=== PATIENT | male | born 1985 | race Caucasian/White ===

== ENCOUNTER 2019-10-02 04:36 | Emergency (ER) | payer MEDICAID, OTHER, SELFPAY ==
[2019-10-02] MEDS ORDERED: ISOVUE-370 76% 100ML VIAL As Ordered ONE (05:01)
[2019-10-02 05:04] LABS: BASO % 0.6 % (0.0-1.0); EOS # 0.2 10^3/uL (0.0-0.5); EOS % 3.6 % (0.0-3.0); HEMATOCRIT 45.5 % (42.0-52.0); HEMOGLOBIN 15.2 g/dl (13.5-17.5); LYMPH # 1.7 10^3/uL (1.5-5.0); LYMPH % 27.1 % (24.0-44.0); MEAN CORPUSCULAR HEMOGLOBIN 31.4 pg (27.0-33.0); MEAN CORPUSCULAR HGB CONC 33.4 g/dl (32.0-36.5); MONO # 0.6 10^3/uL (0.0-0.8); MONO % 10.1 % (0.0-5.0); NEUTROPHILS # 3.7 10^3/uL (1.5-8.5); NEUTROPHILS % 58.3 % (36.0-66.0); PLATELET COUNT, AUTOMATED 248 10^3/uL (150-450); RED BLOOD COUNT 4.84 10^6/uL (4.30-6.10); WHITE BLOOD COUNT 6.4 10^3/uL (4.0-10.0)
[2019-10-02 05:31] LABS: BILIRUBIN,DIRECT 0.1 MG/DL (0.0-0.2); BILIRUBIN,TOTAL 0.3 MG/DL (0.2-1.0); TOTAL PROTEIN 7.2 GM/DL (6.4-8.2)
--- NOTE | 2019-10-02 06:00 | REPVR ---
PROCEDURE INFORMATION: Exam: CT Abdomen And Pelvis With Contrast Exam date and time: 10/02/2019 4:46 AM Age: 34 years old Clinical indication: Abdominal pain; Localized; Right; Additional info: Right sided abdominal pain, hematochezia TECHNIQUE: Imaging protocol: Computed tomography of the abdomen and pelvis with intravenous contrast. Radiation optimization: All CT scans at this facility use at least one of these dose optimization techniques: automated exposure control; mA and/or kV adjustment per patient size (includes targeted exams where dose is matched to clinical indication); or iterative reconstruction. Contrast material: ISO; Contrast volume: 100 ml; Contrast route: AC; COMPARISON: No relevant prior studies available. FINDINGS: Lungs: There are two 2-3 mm left lower lobe lung nodules on axial image 1. Liver: Normal. No mass. Gallbladder and bile ducts: Normal. No calcified stones. No ductal dilation. Pancreas: Normal. No ductal dilation. Spleen: Normal. No splenomegaly. Adrenals: Normal. No mass. Kidneys and ureters: Normal. No hydronephrosis. Stomach and bowel: There is moderate colonic stool burden. The rectosigmoid colon is under distended limiting its evaluation however there is wall edema despite under distension There is increased vascularity with multiple shotty lymph nodes in the pelvis around the anorectum. Appendix: No evidence of appendicitis. Intraperitoneal space: Unremarkable. No free air. No significant fluid collection. Vasculature: Unremarkable. No abdominal aortic aneurysm. Lymph nodes: There is suggestion of some thickened small bowel loops with shotty mesenteric lymph nodes. Bladder: Unremarkable as visualized. Reproductive: Unremarkable as visualized. Bones/joints: Unremarkable. No acute fracture. Soft tissues: Unremarkable. IMPRESSION: 1. CT findings suggestive of rectosigmoiditis with pelvic/iliac chain shotty adenopathy possibly reactive. 2. An element of enteritis cannot be excluded as suggested by questionable thickening of the small bowel loops with shotty mesenteric lymph nodes. 3. Moderate colonic stool burden. 4. Two 2-3 mm left lower lobe lung nodules. If patient does not have known cancer, follow up should be based on clinical information because of the low risk of cancer in this age group. (flako Curran al., Fleischner Society, 2017) Electronically signed by: Wilebrt Razo On 10/02/2019 05:59:49 AM
[2019-10-02] MEDS ORDERED: FLAG500T PO (06:10)
[2019-10-02] MEDS ORDERED: CIPR-249 PO (06:10)
[2019-10-02] MEDS ORDERED: metroNIDAZOLE (FLAGYL) 500 MG TAB PO ONE (06:15)
[2019-10-02] MEDS ORDERED: CIPROFLOXACIN 500MG TABLET PO ONE (06:15)
[2019-10-02 06:36] VITALS: BP 107/65
--- NOTE | 2019-10-02 13:51 | ED PDOC ---
Post-Departure Follow-Up certified letter sent to pt. obtain pcp name and fax report of ct abd/p for fu. if no pcp refer to [facility] and fax there. Arlene Rodriguez MD Oct 02, 2019 13:51
== END 2019-10-02 06:52 | disposition home or self-care (01) ==
LOC: M ED 04:36
DX: K52.9 Noninfective gastroenteritis and colitis, unspecified (principal); R91.8 Other nonspecific abnormal finding of lung field; F17.200 Nicotine dependence, unspecified, uncomplicated; Z80.1 Family history of malignant neoplasm of trachea, bronchus and lung
CPT/HCPCS: 36415; 74177; 80047; 80076; 83690; 85025; 86850; 86900; 86901; 93041; 99284; Q9967

== ENCOUNTER → 2019-10-29 | Outpatient (REF) | payer OTHER, MEDICAID ==
[~2019-10-29] MED LIST: CIPR-249 PO; FLAG500T PO
[2019-10-29 12:36] LABS: BASO # 0.1 10^3/uL (0.0-0.2); BASO % 0.9 % (0.0-1.0); EOS # 0.3 10^3/uL (0.0-0.5); EOS % 3.9 % (0.0-3.0); HEMATOCRIT 42.2 % (42.0-52.0); HEMOGLOBIN 14.1 g/dl (13.5-17.5); LYMPH # 2.4 10^3/uL (1.5-5.0); LYMPH % 34.1 % (24.0-44.0); MEAN CORPUSCULAR HEMOGLOBIN 32.2 pg (27.0-33.0); MEAN CORPUSCULAR HGB CONC 33.4 g/dl (32.0-36.5); MEAN CORPUSCULAR VOLUME 96.3 fl (80.0-96.0); MONO # 0.5 10^3/uL (0.0-0.8); MONO % 7.4 % (0.0-5.0); NEUTROPHILS # 3.8 10^3/uL (1.5-8.5); NEUTROPHILS % 53.4 % (36.0-66.0); PLATELET COUNT, AUTOMATED 256 10^3/uL (150-450); RED BLOOD COUNT 4.38 10^6/uL (4.30-6.10)
[2019-10-29 12:52] LABS: TOTAL 25(OH) VITAMIN D 39.3 NG/ML (30.0-100.0)
[2019-10-29 12:57] LABS: ALBUMIN 3.8 GM/DL (3.2-5.2); ALT/SGPT 22 U/L (12-78); BILIRUBIN,TOTAL 0.4 MG/DL (0.2-1.0); BLOOD UREA NITROGEN 13 MG/DL (7-18); CALCIUM LEVEL 9.7 MG/DL (8.5-10.1); CARBON DIOXIDE LEVEL 31 MEQ/L (21-32); CHLORIDE LEVEL 107 MEQ/L (98-107); CHOLESTEROL LEVEL 180 MG/DL (<200); CHOLESTEROL RISK RATIO 2.608 (<5); CREATININE FOR GFR 0.85 MG/DL (0.70-1.30); FREE T4 0.94 NG/DL (0.76-1.46); GLOMERULAR FILTRATION RATE > 60.0 (>60); GLUCOSE, FASTING 92 MG/DL (70-100); HDL CHOLESTEROL 69 MG/DL (>40); LDL CHOLESTEROL 84 MG/DL (<100); NON-HDL-C 111 MG/DL; POTASSIUM SERUM 4.3 MEQ/L (3.5-5.1); SODIUM LEVEL 140 MEQ/L (136-145); TRIGLYCERIDES LEVEL 137 MG/DL (<150)
== END ==
LOC: M LAB REF 11:50
PROVIDERS: ATTEND Physician Assistant
DX: Z13.9 Encounter for screening, unspecified (principal); R91.8 Other nonspecific abnormal finding of lung field; A09 Infectious gastroenteritis and colitis, unspecified; Z68.21 Body mass index [BMI] 21.0-21.9, adult

== ENCOUNTER → 2019-12-23 | Outpatient (CLI) | payer OTHER, MEDICAID ==
[~2019-12-23] MED LIST changes: +MULTCAP PO
== END ==
LOC: M LABSMTC 12:31
PROVIDERS: ATTEND Anesthesiology
DX: Z01.812 Encounter for preprocedural laboratory examination (principal); Z20.828 Contact with and (suspected) exposure to other viral communicable diseases
CPT/HCPCS: C9803; U0003

== ENCOUNTER 2019-12-28 09:29 | Day surgery (SDC) | payer OTHER ==
[~2019-12-28] VITALS: Ht 180.3 cm; Wt 65.8 kg
[~2019-12-28 09:29] MED LIST changes: +LIDOCAINE 2% 100MG/5ML SDV (FOR ANES.) As Ordered ONE; +propofoL 200 MG/20 ML VIAL As Ordered ONE
[2019-12-28] MEDS ORDERED: NS 1,000 ML IV ONE (10:15)
[2019-12-28 11:45] VITALS: BP 129/85
--- NOTE | 2020-01-06 11:31 | ROOR ---
Patient Name: Fernando Martínez Procedure Date: 12/28/2019 8:55 AM Date of : 1985 Age: 34 Room: [facility] Gender: Male Note Status: Finalized Procedure: Colonoscopy Indications: Hematochezia, Weight loss Providers: Jose Macdonald MD Referring MD: Magdiel Godinez Requesting Provider: Medicines: Monitored Anesthesia Care Complications: No immediate complications. Procedure: Pre-Anesthesia Assessment: - Prior to the procedure, a History and Physical was performed, and patient medications and allergies were reviewed. The patient is competent. The risks and benefits of the procedure and the sedation options and risks were discussed with the patient. All questions were answered and informed consent was obtained. Patient identification and proposed procedure were verified by the physician, the nurse and the anesthesiologist in the procedure room. Mental Status Examination: alert and oriented. Airway Examination: normal oropharyngeal airway and neck mobility. Respiratory Examination: clear to auscultation. CV Examination: normal. Prophylactic Antibiotics: The patient does not require prophylactic antibiotics. Prior Anticoagulants: The patient has taken no previous anticoagulant or antiplatelet agents. ASA Grade Assessment: II - A patient with mild systemic disease. After reviewing the risks and benefits, the patient was deemed in satisfactory condition to undergo the procedure. The anesthesia plan was to use monitored anesthesia care (MAC). Immediately prior to administration of medications, the patient was re-assessed for adequacy to receive sedatives. The heart rate, respiratory rate, oxygen saturations, blood pressure, adequacy of pulmonary ventilation, and response to care were monitored throughout the procedure. The physical status of the patient was re-assessed after the procedure. The Colonoscope was introduced through the anus with the intention of advancing to the cecum. The scope was advanced to the transverse colon before the procedure was aborted. Medications were given. The colonoscopy was performed without difficulty. The patient tolerated the procedure well. The quality of the bowel preparation was unsatisfactory. The rectum was photographed. Scope insertion time was 2 minutes. Scope withdrawal time was 6 minutes. The total duration of the procedure was 8 minutes. Findings: The perianal and digital rectal examinations were normal. A large amount of stool was found in the rectum and from descending colon to transverse colon, making visualization difficult. Lavage of the area was performed using a large amount of sterile water, resulting in incomplete clearance with continued poor visualization. Normal mucosa was found from rectum to transverse colon. Biopsies for histology were taken with a cold forceps from the left colon for evaluation of microscopic colitis. Verification of patient identification for the specimen was done by the physician and nurse using the patient's name, date and medical record number. Estimated blood loss was minimal. Non-bleeding external and internal hemorrhoids were found during retroflexion. The hemorrhoids were medium-sized. Impression: - Preparation of the colon was unsatisfactory. - Stool in the rectum and from descending to transverse colon. - Normal mucosa from rectum to transverse colon. Biopsied. - Non-bleeding external and internal hemorrhoids. Recommendation: - Patient has a contact number available for emergencies. The signs and symptoms of potential delayed complications were discussed with the patient. Return to normal activities tomorrow. Written discharge instructions were provided to the patient. - Resume previous diet. - Use fiber, for example Citrucel, Fibercon, Konsyl or Metamucil. - Await pathology results. - Repeat colonoscopy in 3 months because the bowel preparation was poor, for surveillance based on pathology results and for surveillance based on clinical status at that time. - Return to GI clinic in [facility] (address [address], [address], [place], [facility]) in 4 -- 6 weeks. Please call GI clinic @ [phone] for apppointment date and time. - Return to primary care physician. Jose Macdonald MD Jose Macdonald MD 12/28/2019 11:33:44 AM Number of Addenda: 0 Note Initiated On: 12/28/2019 8:55 AM Estimated Blood Loss: Estimated blood loss was minimal.
== END 2019-12-28 16:07 | disposition home or self-care (01) ==
LOC: M OPP 09:29
PROVIDERS: ATTEND Internal Medicine Gastroenterology
DX: K64.8 Other hemorrhoids (principal); R63.4 Abnormal weight loss; K92.1 Melena; Z88.5 Allergy status to narcotic agent

== ENCOUNTER 2022-01-19 00:54 | Emergency (ER) | payer OTHER ==
[~2022-01-19] VITALS: Ht 175.3 cm; Wt 59.0 kg
[~2022-01-19 00:54] MED LIST changes: -LIDOCAINE 2% 100MG/5ML SDV (FOR ANES.) As Ordered ONE; -propofoL 200 MG/20 ML VIAL As Ordered ONE
[2022-01-19 01:40] LABS: HEMATOCRIT 41.6 % (42.0-52.0); HEMOGLOBIN 14.5 g/dl (13.5-17.5); MEAN CORPUSCULAR HEMOGLOBIN 31.8 pg (27.0-33.0); MEAN CORPUSCULAR HGB CONC 34.9 g/dl (32.0-36.5); MEAN CORPUSCULAR VOLUME 91.2 fl (80.0-96.0); PLATELET COUNT, AUTOMATED 338 10^3/uL (150-450); RED BLOOD COUNT 4.56 10^6/uL (4.30-6.10); WHITE BLOOD COUNT 7.5 10^3/uL (4.0-10.0)
[2022-01-19] MEDS ORDERED: ALEV220T22 PO (02:06)
[2022-01-19] MEDS ORDERED: HOME MED LIST COMPLETE! XX SCH (02:10)
[2022-01-19 02:11] LABS: RSV AMPLIFICATION NEGATIVE (NEGATIVE)
[2022-01-19 02:43] LABS: ACETAMINOPHEN LEVEL < 2.0 UG/ML (10.0-30.0); ALBUMIN 4.1 GM/DL (3.2-5.2); ALT/SGPT 18 U/L (12-78); AMPHETAMINES LEVEL URINE NEGATIVE (NEGATIVE); BARBITURATES URINE NEGATIVE (NEGATIVE); BENZODIAZEPINES URINE NEGATIVE (NEGATIVE); BILIRUBIN,DIRECT 0.2 MG/DL (0.0-0.2); BILIRUBIN,TOTAL 0.8 MG/DL (0.2-1.0); BLOOD UREA NITROGEN 7 MG/DL (7-18); CALCIUM LEVEL 9.3 MG/DL (8.5-10.1); CANNABINOIDS URINE POSITIVE (NEGATIVE); CARBON DIOXIDE LEVEL 26 MEQ/L (21-32); CHLORIDE LEVEL 111 MEQ/L (98-107); COCAINE METABOLITE URINE NEGATIVE (NEGATIVE); CREATININE FOR GFR 0.77 MG/DL (0.70-1.30); ETHYL ALCOHOL (ETHANOL) 0.004 % (0.000-0.010); GLOMERULAR FILTRATION RATE > 60.0 (>60); GLUCOSE, FASTING 95 MG/DL (70-100); METHADONE URINE NEGATIVE (NEGATIVE); OPIATES URINE NEGATIVE (NEGATIVE); PHENCYCLIDINE URINE NEGATIVE (NEGATIVE); POTASSIUM SERUM 3.6 MEQ/L (3.5-5.1); SALICYLATE LEVEL < 1.7 MG/DL (5.0-30.0); SODIUM LEVEL 141 MEQ/L (136-145); THYROID STIMULATING HORMONE 0.232 uIU/ML (0.358-3.740); TOTAL PROTEIN 7.1 GM/DL (6.4-8.2)
[2022-01-19] MEDS ORDERED: VENTAER INH (19:56)
[2022-01-20] MEDS ORDERED: ALBUTEROL 90 MCG/ACT 8GM HFA INHALER INH PRN (11:40)
[2022-01-20] MEDS ORDERED: ACETAMINOPHEN TAB 650MG DOSE (2X325MG) PO ONE (15:05)
[2022-01-20 18:55] VITALS: BP 140/74
== END 2022-01-20 19:29 | disposition home or self-care (01) ==
LOC: M ED 00:54
DX: F43.21 Adjustment disorder with depressed mood (principal); F32.A Depression, unspecified; Z91.51 Personal history of suicidal behavior; Z88.5 Allergy status to narcotic agent

== ENCOUNTER 2023-08-29 04:50 | Inpatient (IN) | payer MEDICAID, OTHER ==
[~2023-08-29] VITALS: Ht 180.3 cm; Wt 56.1 kg
[~2023-08-29 04:50] MED LIST changes: +ALEV220T22 PO; +VENTAER INH
[2023-08-29 05:42] LABS: HEMATOCRIT 42.9 % (42.0-52.0); HEMOGLOBIN 15.1 g/dl (13.5-17.5); MEAN CORPUSCULAR HEMOGLOBIN 32.2 pg (27.0-33.0); MEAN CORPUSCULAR HGB CONC 35.2 g/dl (32.0-36.5); MEAN CORPUSCULAR VOLUME 91.5 fl (80.0-96.0); PLATELET COUNT, AUTOMATED 288 10^3/uL (150-450); RED BLOOD COUNT 4.69 10^6/uL (4.30-6.10); WHITE BLOOD COUNT 10.5 10^3/uL (4.0-10.0)
[2023-08-29 06:08] LABS: BARBITURATES URINE NEGATIVE (NEGATIVE); COCAINE METABOLITE URINE NEGATIVE (NEGATIVE); METHADONE URINE NEGATIVE (NEGATIVE)
[2023-08-29 06:09] LABS: AMPHETAMINES LEVEL URINE NEGATIVE (NEGATIVE); BENZODIAZEPINES URINE NEGATIVE (NEGATIVE); OPIATES URINE NEGATIVE (NEGATIVE); PHENCYCLIDINE URINE NEGATIVE (NEGATIVE)
[2023-08-29 06:10] LABS: CANNABINOIDS URINE POSITIVE (NEGATIVE)
[2023-08-29 06:11] LABS: ETHYL ALCOHOL (ETHANOL) 0.004 % (0.000-0.010)
[2023-08-29 06:13] LABS: ALBUMIN 4.3 G/DL (3.2-5.2); ALKALINE PHOSPHATASE 112 U/L (46-116); ALT/SGPT 16 U/L (7.0-40); AST/SGOT 9 U/L (<34); BILIRUBIN,DIRECT 0.3 MG/DL (<0.4); BILIRUBIN,TOTAL 0.6 MG/DL (0.3-1.2); BLOOD UREA NITROGEN 9 MG/DL (9-23); CALCIUM LEVEL 9.9 MG/DL (8.5-10.1); CARBON DIOXIDE LEVEL 23 MMOL/L (20-31); CHLORIDE LEVEL 105 MMOL/L (98-107); CREATININE FOR GFR 0.82 MG/DL (0.70-1.30); GLOMERULAR FILTRATION RATE > 60.0 (>60); GLUCOSE, FASTING 92 MG/DL (60-100); POTASSIUM SERUM 3.8 MMOL/L (3.5-5.1); SALICYLATE LEVEL < 3.0 MG/DL (<30); SODIUM LEVEL 138 MMOL/L (136-145); TOTAL PROTEIN 7.1 G/DL (5.7-8.2)
[2023-08-29 06:15] LABS: THYROID STIMULATING HORMONE 0.852 uIU/ML (0.55-4.78)
[2023-08-29] MEDS ORDERED: THERTAB52 PO (09:38)
[2023-08-29] MEDS ORDERED: HOME MED LIST COMPLETE! XX SCH (09:40)
[2023-08-29] MEDS ORDERED: diphenhydrAMINE 25MG CAP PO PRN (12:15)
[2023-08-29] MEDS ORDERED: traZODone 50 MG TAB PO PRN (12:15)
[2023-08-29] MEDS ORDERED: MAALOX 30 ML SUSP *UDC PO PRN (12:15)
[2023-08-29] MEDS ORDERED: MOM 30ML SUSPENSION UDC PO PRN (12:15)
[2023-08-29] MEDS: IBUPROFEN 400MG TAB PO PRN (21:09)
[2023-08-30 06:22] VITALS: BP 117/67; TEMP 98.1; O2SAT 96
[2023-08-30] MEDS ORDERED: ALBUTEROL 90 MCG/ACT 8GM HFA INHALER INH PRN (09:35)
[2023-08-30] MEDS ORDERED: OLANZapine ORAL DISINTEGRATING TAB 5MG PO PRN (09:35)
[2023-08-30] MEDS: NICOTINE 14 MG/24 HR TRANSDERMAL TD SCH (13:06)
[2023-08-30] MEDS: ACETAMINOPHEN TAB 650MG DOSE (2X325MG) PO PRN (13:07)
[2023-08-30 16:03] VITALS: BP 120/71; TEMP 98.5; O2SAT 100
[2023-08-31 06:22] VITALS: BP 125/77; TEMP 98.1; O2SAT 99
[2023-08-31 15:33] VITALS: BP 118/71; TEMP 98.2; O2SAT 98
[2023-09-01 06:26] VITALS: BP 115/61; TEMP 98.2; O2SAT 99
[2023-09-01 15:31] VITALS: BP 135/66; TEMP 98.1; O2SAT 98
[2023-09-02 06:46] VITALS: BP 98/56; TEMP 97.8; O2SAT 98
== END 2023-09-02 12:33 | disposition home or self-care (01) | DRG 753 ==
LOC: M ED 04:50 → M ED INP 12:13 → M PSY 15:12
PROVIDERS: ADMIT Student in an Organized Health Care Education/Training Program; ATTEND Student in an Organized Health Care Education/Training Program
DX: F31.9 Bipolar disorder, unspecified (principal); R45.851 Suicidal ideations; F17.290 Nicotine dependence, other tobacco product, uncomplicated; Z56.0 Unemployment, unspecified; Z62.810 Personal history of physical and sexual abuse in childhood; Z88.5 Allergy status to narcotic agent; Z11.52 Encounter for screening for COVID-19

== ENCOUNTER → 2023-09-09 | Outpatient (REF) | payer MEDICAID ==
[~2023-09-09] MED LIST changes: +THERTAB52 PO
[2023-09-09 16:56] LABS: ALBUMIN 4.2 G/DL (3.2-5.2); ALKALINE PHOSPHATASE 116 U/L (46-116); ALT/SGPT 17 U/L (7.0-40); AST/SGOT 15 U/L (<34); BILIRUBIN,TOTAL 0.9 MG/DL (0.3-1.2); BLOOD UREA NITROGEN 13 MG/DL (9-23); CALCIUM LEVEL 9.8 MG/DL (8.5-10.1); CARBON DIOXIDE LEVEL 28 MMOL/L (20-31); CHLORIDE LEVEL 107 MMOL/L (98-107); CHOLESTEROL LEVEL 144 MG/DL (<200); CHOLESTEROL RISK RATIO 2.29 (<5); CREATININE FOR GFR 0.85 MG/DL (0.70-1.30); GLOMERULAR FILTRATION RATE > 60.0 (>60); GLUCOSE, FASTING 78 MG/DL (60-100); HDL CHOLESTEROL 62.8 MG/DL (>40); NON-HDL-C 81.2 MG/DL; POTASSIUM SERUM 4.6 MMOL/L (3.5-5.1); SODIUM LEVEL 141 MMOL/L (136-145); TRIGLYCERIDES LEVEL 61 MG/DL (<150)
[2023-09-09 16:57] LABS: THYROID STIMULATING HORMONE 0.566 uIU/ML (0.55-4.78); TOTAL 25(OH) VITAMIN D 8.2 NG/ML (20.0-100.0)
[2023-09-09 17:02] LABS: HEMOGLOBIN A1c 4.6 % (4.0-6.0)
[2023-09-09 17:04] LABS: BASO % 0.4 % (0.0-1.0); EOS # 0.2 10^3/uL (0.0-0.5); EOS % 2.1 % (0.0-3.0); HEMATOCRIT 46.2 % (42.0-52.0); HEMOGLOBIN 15.5 g/dl (13.5-17.5); LYMPH # 1.5 10^3/uL (1.5-5.0); LYMPH % 20.4 % (24.0-44.0); MEAN CORPUSCULAR HGB CONC 33.5 g/dl (32.0-36.5); MEAN CORPUSCULAR VOLUME 95.3 fl (80.0-96.0); MONO # 0.6 10^3/uL (0.0-0.8); MONO % 7.9 % (2.0-8.0); NEUTROPHILS % 68.9 % (36.0-66.0); PLATELET COUNT, AUTOMATED 317 10^3/uL (150-450); RED BLOOD COUNT 4.85 10^6/uL (4.30-6.10); WHITE BLOOD COUNT 7.2 10^3/uL (4.0-10.0)
== END ==
LOC: M LAB REF 16:29
PROVIDERS: ATTEND Nurse Practitioner Family
DX: R63.4 Abnormal weight loss (principal); E55.9 Vitamin D deficiency, unspecified; R53.83 Other fatigue; Z11.9 Encounter for screening for infectious and parasitic diseases, unspecified

== ENCOUNTER 2023-10-20 02:14 | Emergency (ER) | payer OTHER ==
[~2023-10-20] VITALS: Ht 180.3 cm; Wt 57.3 kg
[2023-10-20 02:41] LABS: BASO # 0.1 10^3/uL (0.0-0.2); BASO % 0.6 % (0.0-1.0); EOS # 0.2 10^3/uL (0.0-0.5); EOS % 1.9 % (0.0-3.0); HEMATOCRIT 42.3 % (42.0-52.0); HEMOGLOBIN 15.2 g/dl (13.5-17.5); LYMPH # 2.2 10^3/uL (1.5-5.0); LYMPH % 18.5 % (24.0-44.0); MEAN CORPUSCULAR HEMOGLOBIN 32.2 pg (27.0-33.0); MEAN CORPUSCULAR HGB CONC 35.9 g/dl (32.0-36.5); MEAN CORPUSCULAR VOLUME 89.6 fl (80.0-96.0); MONO # 0.8 10^3/uL (0.0-0.8); MONO % 6.6 % (2.0-8.0); NEUTROPHILS # 8.5 10^3/uL (1.5-8.5); NEUTROPHILS % 72.1 % (36.0-66.0); PLATELET COUNT, AUTOMATED 327 10^3/uL (150-450); RED BLOOD COUNT 4.72 10^6/uL (4.30-6.10); WHITE BLOOD COUNT 11.8 10^3/uL (4.0-10.0)
[2023-10-20 03:06] LABS: LIPASE 32 U/L (12-53)
[2023-10-20 03:09] LABS: ALBUMIN 4.1 G/DL (3.2-5.2); ALKALINE PHOSPHATASE 121 U/L (46-116); ALT/SGPT 13 U/L (7.0-40); AST/SGOT < 8 U/L (<34); BILIRUBIN,DIRECT 0.4 MG/DL (<0.4); BILIRUBIN,TOTAL 1.3 MG/DL (0.3-1.2); BLOOD UREA NITROGEN 11 MG/DL (9-23); CALCIUM LEVEL 9.7 MG/DL (8.5-10.1); CARBON DIOXIDE LEVEL 27 MMOL/L (20-31); CHLORIDE LEVEL 102 MMOL/L (98-107); CREATININE FOR GFR 0.87 MG/DL (0.70-1.30); GLOMERULAR FILTRATION RATE > 60.0 (>60); GLUCOSE, FASTING 88 MG/DL (60-100); POTASSIUM SERUM 3.7 MMOL/L (3.5-5.1); SODIUM LEVEL 135 MMOL/L (136-145); TOTAL PROTEIN 6.9 G/DL (5.7-8.2)
[2023-10-20] MEDS: PANTOPRAZOLE 40MG VIAL IV ONE (05:54)
[2023-10-20] MEDS: GASTROGRAFIN SOLUTION 30ML PO SCH (06:12)
[2023-10-20] MEDS ORDERED: ISOVUE-370 76% 100ML VIAL As Ordered ONE (07:03)
[2023-10-20 12:15] VITALS: BP 116/83; TEMP 98; O2SAT 98
[2023-10-20] MEDS ORDERED: PANT20TA6 PO (12:16)
[2023-10-20] MEDS ORDERED: CARA1TAB6 PO (12:16)
== END 2023-10-20 12:35 | disposition home or self-care (01) ==
LOC: EDBD 02:14 → M ED 02:14
DX: K21.9 Gastro-esophageal reflux disease without esophagitis (principal); K56.1 Intussusception; F17.290 Nicotine dependence, other tobacco product, uncomplicated; Z79.899 Other long term (current) drug therapy; Z88.5 Allergy status to narcotic agent
CPT/HCPCS: 74177; 80048; 80076; 83605; 83690; 85025; 86850; 86900; 86901; 96374; 99284; C9113; Q9963; Q9967

== ENCOUNTER → 2023-10-22 | Outpatient (REF) | payer OTHER ==
[~2023-10-22] MED LIST changes: +CARA1TAB6 PO; +PANT20TA6 PO
[2023-10-22 17:55] LABS: PERCENT SATURATION 44.5 % (19.7-50.0)
[2023-10-22 17:57] LABS: FREE T4 1.41 NG/DL (0.89-1.76)
[2023-10-22 20:07] LABS: IMMUNOGLOBULIN A 268.9 MG/DL (40-350)
== END ==
LOC: M LAB REF 16:39
PROVIDERS: ATTEND Nurse Practitioner Family
DX: R63.6 Underweight (principal); R14.0 Abdominal distension (gaseous)

== ENCOUNTER 2024-02-14 08:31 | Emergency (ER) | payer OTHER ==
[~2024-02-14] VITALS: Ht 180.3 cm; Wt 61.3 kg
[2024-02-14] MEDS ORDERED: NAPR220C14 PO (08:41)
[2024-02-14] MEDS: dexAMETHasone 20MG/5ML VIAL IV ONE (10:49)
[2024-02-14] MEDS: AMPICILLIN SOD/SULBACTAM SOD 3 GM in D5W MINI-BAG PLUS 100 ML IV ONE (10:49)
[2024-02-14 11:10] LABS: BASO % 0.4 % (0.0-1.0); EOS # 0.3 10^3/uL (0.0-0.5); HEMATOCRIT 35.3 % (42.0-52.0); HEMOGLOBIN 11.8 g/dl (13.5-17.5); LYMPH # 1.3 10^3/uL (1.5-5.0); LYMPH % 13.3 % (24.0-44.0); MEAN CORPUSCULAR HEMOGLOBIN 31.2 pg (27.0-33.0); MEAN CORPUSCULAR HGB CONC 33.4 g/dl (32.0-36.5); MEAN CORPUSCULAR VOLUME 93.4 fl (80.0-96.0); MONO # 0.8 10^3/uL (0.0-0.8); MONO % 8.6 % (2.0-8.0); NEUTROPHILS # 7.1 10^3/uL (1.5-8.5); NEUTROPHILS % 74.4 % (36.0-66.0); PLATELET COUNT, AUTOMATED 242 10^3/uL (150-450); RED BLOOD COUNT 3.78 10^6/uL (4.30-6.10); WHITE BLOOD COUNT 9.5 10^3/uL (4.0-10.0)
[2024-02-14 11:30] VITALS: BP 106/59; O2SAT 99
[2024-02-14 11:34] LABS: BLOOD UREA NITROGEN 13 MG/DL (9-23); CALCIUM LEVEL 9.2 MG/DL (8.5-10.1); CARBON DIOXIDE LEVEL 28 MMOL/L (20-31); CHLORIDE LEVEL 113 MMOL/L (98-107); CREATININE FOR GFR 0.73 MG/DL (0.70-1.30); GLOMERULAR FILTRATION RATE > 60.0 (>60); GLUCOSE, FASTING 91 MG/DL (60-100); POTASSIUM SERUM 4.5 MMOL/L (3.5-5.1); SODIUM LEVEL 144 MMOL/L (136-145)
[2024-02-14] MEDS ORDERED: AMOX875T2 PO (11:37)
[2024-02-14 11:44] VITALS: TEMP 97.3
== END 2024-02-14 11:47 | disposition home or self-care (01) ==
LOC: EDBD 08:31 → M ED 08:31
DX: K04.7 Periapical abscess without sinus (principal); Z88.5 Allergy status to narcotic agent; F17.200 Nicotine dependence, unspecified, uncomplicated
CPT/HCPCS: 80048; 85025; 96365; 96375; 99284; J0295; J1100